=== PATIENT | female | born 1985 | race Caucasian/White ===

== ENCOUNTER 2020-03-18 01:28 | Inpatient (IN) | payer OTHER ==
[2020-03-18] MEDS ORDERED: LIDOCAINE 0.5% (PF) 5 MG/ML (50 ML SDV) SQ PRN (02:37)
[2020-03-18] MEDS ORDERED: METHYLERGONOVINE 0.2 MG/ML 1 ML AMP IM PRN (02:37)
[2020-03-18] MEDS ORDERED: TERBUTALINE 1 MG/ML VIAL SQ PRN (02:37)
[2020-03-18] MEDS ORDERED: OXYTOCIN 10 UNIT/ML 1 ML VIAL IM PRN (02:37)
[2020-03-18] MEDS ORDERED: CARBOPROST TROMETHAMINE 250 MCG/ML 1 ML AMP IM PRN (02:37)
[2020-03-18] MEDS ORDERED: BUTORPHANOL 1 MG/ML 1 ML VIAL IV PRN (02:46)
[2020-03-18] MEDS: LACTATED RINGERS 1,000 ML IV SCH ×3 (02:51→13:24)
[2020-03-18 03:10] LABS: Basophils % (A) 0 %; Eosinophils # (A) 0.1 k/uL (0-0.7); Eosinophils % (A) 1 %; HCT 38.4 % (34.0-46.0); HGB 12.8 gm/dL (11.4-16.0); Lymphocytes # (A) 1.4 k/uL (1.0-4.8); Lymphocytes % (A) 13 %; MCH 31.4 pg (25.0-35.0); MCHC 33.4 g/dL (31.0-37.0); MCV 94.2 fL (80.0-100.0); Mean Platelet Volume 10.2; Monocytes # (A) 0.6 k/uL (0-1.0); Monocytes % (A) 6 %; Neutrophils # (A) 8.4 k/uL (1.3-7.7); Neutrophils % (A) 78 %; Platelet Count 242 k/uL (150-450); RBC 4.08 m/uL (3.80-5.40); RDW 14.7 % (11.5-15.5); WBC 10.8 k/uL (3.8-10.6)
[2020-03-18 03:19] LABS: Uric Acid 5.3 mg/dL (3.7-7.4)
[2020-03-18 03:43] VITALS: RESP 16
[2020-03-18] MEDS ORDERED: hydrALAZINE HCL 20 MG/ML 1 ML VIAL IVP STA (06:58)
[2020-03-18] MEDS ORDERED: SODIUM CHLORIDE 0.9% 100 ML BAG ONE (07:41)
[2020-03-18] MEDS ORDERED: ROPIVACAINE 5MG/ML 20ML VIAL ONE (07:41)
[2020-03-18] MEDS ORDERED: fentaNYL (PF) 50 MCG/ML 5 ML AMP ONE (07:41)
[2020-03-18] MEDS: OXYTOCIN 30 UNITS/500 ML NS 30 UNIT in SALINE 1 500ML.BAG IV SCH ×2 (08:13→13:25)
--- NOTE | 2020-03-18 08:27 | P.HPOB ---
History of Present Illness H&P Date: 03/18/20 Chief Complaint: IUP @ 39 2/7 weeks, SROM, GDM This is a 35-year-old 1 para 0 at 39 and one sevenths weeks that presented to labor and delivery early this morning with complaints of spontaneous rupture of membranes. Patient has been receiving routine care with the known diagnosis of gestational diabetes. Gestational diabetes has been well controlled. Patient noted good movement she was having occasional contractions yesterday but was getting ready for bed and then noted rupture of membranes. Review of Systems Constitutional: Denies fatigue, Denies fever Ears, nose, mouth and throat: Denies headache Cardiovascular: Reports leg edema Respiratory: Denies cough, Denies dyspnea Gastrointestinal: Denies constipation, Denies diarrhea, Denies nausea, Denies vomiting Genitourinary: Reports Past Medical History Additional Past Medical History / Comment(s): gestational diabetic- diet controlled. History of Any Multi-Drug Resistant Organisms: None Reported Past Surgical History: No Surgical Hx Reported Past Anesthesia/Blood Transfusion Reactions: No Reported Reaction Past Psychological History: No Psychological Hx Reported Smoking Status: Never smoker Past Alcohol Use History: None Reported Past Drug Use History: None Reported Medications and Allergies Home Medications Medication Instructions Recorded Confirmed Type Pnv No.95/Ferrous Fum/Folic AC 1 tab PO ONCE 03/18/20 03/18/20 History [ Multivitamin Tablet] Allergies Allergy/AdvReac Type Severity Reaction Status Date / Time No Known Allergies Allergy Verified 03/18/20 01:38 Exam Osteopathic Statement: *. No significant issues noted on an osteopathic structural exam other than those noted in the History and Physical/Consult. 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 Patient states it is working well and she is comfortable. Breathing is noted to be nonlabored, heart has regular rate and rhythm, abdomen is gravid and appropriate for gestational age. heart tones are noted to be category 1 and she is vitor every 2 minutes. On cervical exam she is 9/100/-1 station. Results Result Diagrams: 03/18/20 02:20 Abnormal Lab Results - Last 24 Hours (Table) 03/18/20 03/18/20 Range/Units 02:20 02:20 WBC 10.8 H (3.8-10.6) k/uL Neutrophils # 8.4 H (1.3-7.7) k/uL AST 37 H (14-36) U/L Assessment and Plan (1) Term Current Visit: Yes Status: Acute Code(s): Z34.90 - ENCNTR FOR SUPRVSN OF NORMAL , UNSP, UNSP TRIMESTER SNOMED Code(s): 29390346 (2) GDM (gestational diabetes mellitus), class A1 Current Visit: Yes Status: Acute Code(s): O24.410 - GESTATIONAL DIABETES MELLITUS IN , DIET CONTROLLED SNOMED Code(s): 92636459 (3) AMA (advanced maternal age) primigravida 35+ Current Visit: Yes Status: Acute Code(s): O09.519 - SUPERVISION OF ELDERLY PRIMIGRAVIDA, UNSPECIFIED TRIMESTER SNOMED Code(s): 30536264 Plan: This 35-year-old 1 para 0 at 39-2/7 weeks presented to labor and delivery early this morning with complaints of spontaneous rupture of membranes, clear in nature. Patient was admitted and made slow progress the evening. Patient currently is comfortable with an epidural and 9 cm. Will anticipate spontaneous vaginal delivery.
[2020-03-18] MEDS ORDERED: BENZOCAINE/MENTHOL SPRAY 1 GM/SPRAY AEROSOL TOPICAL PRN (13:23)
[2020-03-18] MEDS ORDERED: diphenhydrAMINE 25 MG CAP PO PRN (13:23)
[2020-03-18] MEDS ORDERED: diphenhydrAMINE 50 MG CAP PO PRN (13:23)
[2020-03-18] MEDS ORDERED: ACETAMINOPHEN TAB 325 MG TAB PO PRN (13:23)
[2020-03-18] MEDS ORDERED: LANOLIN CREAM 5 GM TUBE TOPICAL PRN (13:23)
[2020-03-18] MEDS ORDERED: ZOLPIDEM 5 MG TAB PO PRN (13:23)
[2020-03-18] MEDS ORDERED: HYDROCORTISONE 2.5% RECTAL CREAM 30 GM TUBE RECTAL PRN (13:23)
[2020-03-18] MEDS ORDERED: SIMETHICONE 80 MG CHEWABLE PO PRN (13:23)
[2020-03-18] MEDS ORDERED: diphenhydrAMINE 50 MG/ML 1 ML VIAL IVP PRN ×2 (13:23)
[2020-03-18] MEDS ORDERED: HYDROcodone/APAP 5-325MG 1 EACH TAB PO PRN (13:23)
[2020-03-18] MEDS ORDERED: PRENATAL VIT-IRON-FOLIC ACID 1 EACH CAP PO ONE (13:30)
[2020-03-18] MEDS ORDERED: OXYTOCIN 30 UNITS/500 ML NS 30 UNIT in SALINE 1 500ML.BAG IV SCH (13:30)
--- NOTE | 2020-03-18 13:30 | P.PROBDLV ---
Vaginal Delivery Note - . Vaginal Delivery Note: This is a 35-year-old 1 para 0 that presented to labor and delivery this evening with complaints of spontaneous rupture of membranes, clear in nature. Patient initially denied contractions. Patient was admitted to labor and delivery and made slow progress overnight. Patient progressed through labor eventually becoming uncomfortable and requesting epidural placement. Epidural was placed without difficulty by the anesthesia department. Patient soon progre ssed to complete began pushing and had a normal spontaneous vaginal delivery of a viable female infant at 1251, weight of 8 lbs. 1 oz. and Apgars of 6 and 8 at one and 5 minutes respectively. Infant was noted to have a loose nuchal cord which was delivered through on the perineum. The umbilical cord was doubly clamped after delivery and was handed off to awaiting RN. The placenta was then delivered spontaneously intact with a three-vessel cord being noted. The uterus is noted be firm and below the umbilicus. On inspection the patient's vaginal vault a second-degree midline laceration was noted. This was repaired in the usual fashion with 3-0 Rapide. A small amount of bleeding was noted therefore manual extraction of a few clots was performed, uterus was then noted to be firm and one below the umbilicus. Lochia was noted to be minimal at after extraction of the clots. Rectal exam was performed and found to be normal in nature. All counts were noted be correct 2, patient and infant tolerated delivery well and are resting comfortably.
[2020-03-18] MEDS: IBUPROFEN 600 MG TAB PO PRN ×2 (13:43→20:25)
[2020-03-18] MEDS: SENNOSIDES-DOCUSATE SODIUM 1 EACH TAB PO SCH (20:25)
[2020-03-19] MEDS: IBUPROFEN 600 MG TAB PO PRN ×2 (06:48→13:39)
[2020-03-19] MEDS: SENNOSIDES-DOCUSATE SODIUM 1 EACH TAB PO SCH (07:40)
[2020-03-19 08:02] VITALS: BP 113/78; PULSE 84; TEMP 97.9
--- NOTE | 2020-03-19 10:01 | P.DS ---
Providers Date of admission: 03/18/20 01:53 Expected date of discharge: 03/19/20 Attending physician: Sharla Duarte Primary care physician: Stated None - Discharge Diagnosis(es) (1) Term Current Visit: Yes Status: Acute (2) GDM (gestational diabetes mellitus), class A1 Current Visit: Yes Status: Acute (3) AMA (advanced maternal age) primigravida 35+ Current Visit: Yes Status: Acute (4) Status post vaginal delivery Current Visit: Yes Status: Acute (5) Second degree perineal laceration Current Visit: Yes Status: Acute Hospital Course: This is a 35-year-old 1 now para 1 status post normal spontaneous vaginal delivery. Patient was admitted to labor and delivery on March 18 with spontaneous rupture of membranes. Patient had been receiving routine care with myself which is been essentially uncomplicated. Patient was diagnosed with gestational diabetes although she had been well-controlled with diet. Patient was admitted to labor and delivery and made slow progress. Patient eventually entered the active phase of labor and became uncomfortable. Patient did request epidural for analgesia. Epidural was placed without difficulty by the anesthesia department. Patient progressed to complete began pushing and had normal spontaneous vaginal delivery of a viable female infant at 1251, weight of 8 lbs. 1 oz. with Apgars of 6 and 8 at one and 5 minutes respectively. Patient did sustain a second-degree midline vaginal laceration which was repaired in the usual fashion with 3-0 Rapide. Patient's course has been uneventful fold. On this day #1 she is ambulating and voiding without difficulty. She is tolerating a regular diet without nausea or vomiting. And she states her pain is well-controlled. She does desire discharge home with possible at 24 hours. Patient Condition at Discharge: Good Plan - Discharge Summary New Discharge Prescriptions: No Action Pnv No.95/Ferrous Fum/Folic AC [ Multivitamin Tablet] 1 tab PO ONCE Discharge Medication List Pnv No.95/Ferrous Fum/Folic AC [ Multivitamin Tablet] 1 tab PO ONCE 03/18/20 [History] Follow up Appointment(s)/Referral(s): Sharla Duarte DO [Doctor of Osteopathic Medicine] - 4 Weeks Patient Instructions/Handouts: Vaginal Delivery (DC), Vaginal Delivery (GEN) Activity/Diet/Wound Care/Special Instructions: Patient can expect menstrual-like bleeding for 4-6 weeks status post vaginal delivery. [id number] ibuprofen 600 mg as needed for pain. Patient is to follow-up in 4 weeks with myself in the office. Discharge instructions are reviewed. Patient is to call should she have any questions or concerns prior to her appointment. Discharge Disposition: HOME SELF-CARE
== END 2020-03-19 14:30 | disposition home or self-care (01) | DRG 807 ==
LOC: FBPOP 01:28 → 4FBP 01:53
PROVIDERS: ADMIT Obstetrics & Gynecology; ATTEND Obstetrics & Gynecology Obstetrics
PROC: 00HU33Z Insertion of Infusion Device into Spinal Canal, Percutaneous Approach (ICD-10-PCS; principal; 2020-03-18)
PROC: 3E0R3NZ Introduction of Analgesics, Hypnotics, Sedatives into Spinal Canal, Percutaneous Approach (ICD-10-PCS; principal; 2020-03-18)
PROC: 10E0XZZ Delivery of Products of Conception, External Approach (ICD-10-PCS; principal; 2020-03-18)
PROC: 0KQM0ZZ Repair Perineum Muscle, Open Approach (ICD-10-PCS; principal; 2020-03-18)
DX: O24.420 Gestational diabetes mellitus in childbirth, diet controlled (principal); Z37.0 Single live birth; Z3A.39 39 weeks gestation of pregnancy; O69.81X0 Labor and delivery complicated by cord around neck, without compression, not applicable or unspecified; O70.1 Second degree perineal laceration during delivery
CPT/HCPCS: 59025; 84112; 84450; 84460; 84550; 85025; 86850; 86900; 86901; 99213